=== PATIENT | female | born 1945 | race Caucasian/White ===

== ENCOUNTER 2019-02-16 23:08 | Observation (INO) | payer MEDICARE ==
[~2019-02-16] VITALS: Ht 167.6 cm; Wt 63.5 kg
[2019-02-16 23:08] VITALS: BP 195/84
--- NOTE | 2019-02-16 23:08 | NUR ---
ARRIVAL PATIENT PRESENTS VIA AMBULANCE SP FALL OFF PORCH AT 2245. PATIENT STATES THAT SHE WAS GOING OUTSIDE TO SMOKE, MISSED A STEP, AND FELL ONTO GROUND. DENIES HEAD INJURY OR LOC. DEFORMITY NOTED TO LEFT HUMERUS; STABILIZED BY EMS. PULSES, NEURO INTACT. MD ESTEE NOTIFIED OF PATIENT'S ARRIVAL.
[2019-02-16 23:15] VITALS: BP 187/85
--- NOTE | 2019-02-16 23:25 | ER.PDOC ---
General Chief Complaint: Requesting Medical Care Stated Complaint: ARM PAIN Time seen by MD: 23:23 Source: patient Exam Limitations: no limitations History of Present Illness Initial Comments Left arm pain S/P fall. She missed her steps coming down the stair case. She refused hitting her head and no loss of consciousness. Occurred: just prior to arrival Where: home Severity: severe Context: Tripped Loss of Consciousness: No Loss of Consciousness Associated Symptoms: denies symptoms Allergies: Coded Allergies: Penicillins (Verified Allergy, Unknown, Rash, 02/16/19) levofloxacin (Verified Allergy, Unknown, Rash, 02/16/19) MEDS Unable to Obtain Active Prescriptions or Reported Meds Review of Systems Constitutional: no symptoms reported Respiratory: no symptoms reported Cardiovascular: no symptoms reported Gastrointestinal: no symptoms reported Musculoskeletal: see HPI All Other Systems: Reviewed and Negative Physical Exam General Appearance: No Apparent Distress, WD/WN Head: No Evidence of Injury Ears, Nose, Mouth, Throat: Hearing Grossly Normal, No Evidence of ENT Injury, No Dental Injury Neck: Non-Tender, Normal Alignment, Nexus criteria neg, Normal Inspection Cardiovascular/Respiratory: Regular Rate, Rhythm, No M/R/G, Normal Peripheral Pulses, No JVD, Normal Breath Sounds, No Respiratory Distress Gastrointestinal: Normal Bowel Sounds, No Organomegaly, No Pulsatile Mass, Non Tender, Soft Back: Normal Inspection, No CVA Tenderness, No Vertebral Tenderness Extremities: Pain With Movement, Tenderness (left arm with deformity) 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 (02/16/19 23:50) Xr Chest 1v (02/16/19 23:50) Ekg-Routine (02/16/19 23:50) Vital Signs Date Time Temp Pulse Resp B/P (MAP) Pulse Ox O2 Delivery O2 Flow Rate FiO2 02/16/19 23:45 76 16 160/85 (110) 98 Room Air 02/16/19 23:30 77 16 167/83 (111) 98 Room Air 02/16/19 23:15 80 16 187/85 (119) 98 Room Air 02/16/19 23:08 98.1 78 16 195/84 (121) 98 Room Air 02/16/19 23:08 98.1 78 16 02/16/19 23:08 16 02/16/19 23:08 98.1 78 16 98 Room Air EKG/XRAY/CT/US XRAY Comments: Acute mid diaphyseal fracture of the left humerus as above Departure Time of Disposition: 23:59 Disposition: 09 ADMITTED INPATIENT Impression: Primary Impression: Fracture, humerus closed, shaft Condition: Stable Scripts Unable to Obtain Active Prescriptions or Reported Meds Comments Admitted to Dr. Escoto and spoke to Dr. Miranda who will consult. Duration or Time Spent with Pa: 45 mins Problem Qualifiers Primary Impression: Fracture, humerus closed, shaft Encounter type: initial encounter Fracture morphology: unspecified fracture morphology Laterality: left Qualified Codes: S42.302A - Unspecified fracture of shaft of humerus, left arm, initial encounter for closed fracture NIK FONTANEZ MD Feb 16, 2019 23:25
[2019-02-16 23:30] VITALS: BP 167/83
--- NOTE | 2019-02-16 23:41 | DIREP ---
PROCEDURE:XRAY HUMERUS MIN 2 VWS-LT COMPARISON:None. INDICATIONS:Pain/injury S/P fall FINDINGS: BONES:There is an acute, oblique fracture involving the mid left humeral diaphysis. There is a mild lateral apex angulation deformity JOINTS:Normal. SOFT TISSUES:Normal. OTHER:No additional findings. CONCLUSION:Acute mid diaphyseal fracture of the left humerus as above Dictated by: Alexandra Evans M.D. on 02/16/2019 at 11:39 PM
[2019-02-16 23:45] VITALS: BP 160/85
--- NOTE | 2019-02-16 23:45 | NUR ---
CONSULT DR FONTANEZ ON PHONE WITH DR NUNO REGARDING PATIENT.
[2019-02-17] VITALS (8 sets, daily range): BP systolic 127–169; BP diastolic 54–81
--- NOTE | 2019-02-17 00:01 | NUR ---
CONSULT DR FONTANEZ ON PHONE WITH DR LEVINE REGARDING PATIENT.
[2019-02-17] MEDS ORDERED: LACTATED RINGERS 1,000 ML IV STA (00:03)
[2019-02-17 00:13] LABS: BASOPHIL % 0.4 % (0.0-0.2); EOSINOPHIL # 0.2 10^3/uL (0.0-0.2); EOSINOPHIL % 1.8 % (0.0-5.0); HEMOGLOBIN 12.5 g/dL (12.0-15.0); LYMPHOCYTES # 1.5 10^3/uL (1.0-4.8); LYMPHOCYTES % 18.5 % (24.0-44.0); MEAN CELL HGB CONCENTRATION 33.1 g/dL (33-37); MEAN CORP VOLUME 90.9 fL (78-100); MEAN PLATELET VOLUME 8.8 fL (7.8-11.0); MONOCYTES # 0.5 10^3/uL (0.3-0.8); MONOCYTES % 5.9 % (5.0-12.0); NEUTROPHIL # 6.1 10^3/uL (1.8-7.7); NEUTROPHILS % 73.2 % (41.0-85.0); WHITE BLOOD CELL 8.3 10^3/uL (4.5-11.0)
[2019-02-17] MEDS ORDERED: LACTATED RINGERS 1,000 ML ONE (00:17)
[2019-02-17] MEDS ORDERED: ZOFRAN 4 MG/2 ML VIAL ONE (00:23)
[2019-02-17] MEDS ORDERED: DILAUDID ONE (00:24)
[2019-02-17] MEDS ORDERED: ZOFRAN 4 MG/2 ML VIAL IV PRN (00:30)
[2019-02-17] MEDS: DILAUDID IV PRN ×2 (00:30→04:29)
--- NOTE | 2019-02-17 00:36 | DIREP ---
PROCEDURE:CHEST 1 VIEW COMPARISON:None. INDICATIONS:Medical clearance FINDINGS: LUNGS/PLEURA:No significant pulmonary parenchymal abnormalities. No effusions. Senescent interstitial prominence. VASCULATURE:Normal. Unremarkable pulmonary vasculature. CARDIAC:Normal. No cardiac silhouette abnormality or cardiomegaly. MEDIASTINUM:Normal. No visible mass or adenopathy. BONES:Normal. No fracture or visible bony lesion. OTHER:Negative. CONCLUSION:No active cardiopulmonary disease process Dictated by: Alexandra Evans M.D. on 02/17/2019 at 00:34 AM
[2019-02-17 00:41] LABS: CALCIUM 10.1 mg/dL (8.4-10.5); CARBON DIOXIDE 28.7 mmol/L (20.0-32)
--- NOTE | 2019-02-17 00:50 | NUR ---
SPLINT ORTHO GLASS POSTERIOR SPLINT PLACED BY MD ESTEE.
--- NOTE | 2019-02-17 01:01 | NUR ---
REPORT REPORT CALLED TO LAURA GUDINO ON MED/SURG. ALL QUESTIONS ANSWERED. PATIENT WILL BE TRANSFERRED TO MED/SURG 337 SHORTLY.
--- NOTE | 2019-02-17 01:50 | NUR ---
ARRIVAL PATIENT ARRIVED ON UNIT. ASSUMED CARE AT THIS TIME
--- NOTE | 2019-02-17 02:14 | PCM.EKG ---
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
--- NOTE | 2019-02-17 03:11 | NUR ---
MEDICATION REPORTED TO DR LEVINE PATIENT REPORTED PAIN AT 6. NO ORDERS RECEIVED AT THIS TIME.
--- NOTE | 2019-02-17 03:30 | NUR ---
UPDATE PATIENT CURRENTLY SLEEPING AT THIS TIME. NO SIGNS OF DISTRESS
--- NOTE | 2019-02-17 08:15 | PCM.HP ---
History of Present Illness Reason for Visit: Left Arm pain History of Present Illness Patient is a 73 F PMH of MD Ash (legally blind), HTN, Ulnar Neuropathy LUE s/p corrective surgery, Dementia, CAD (hx of LHC 8 months ago without stenting, negative stress test in the last year), AAA who presents s/p mechanical fall with left arm pain. Patient found to have mid shaft fx of left humerus. Patient admitted to Ortho and medicine consulted for medical management of comorbidities. Patient has LHC in the last month patient needed stenting x 2; however, arteries too small. Family reported that unknown Coronary branch is 100% occluded. She has no chest pain, shortness of breath. Her EKG is negative for acute ischemic changes and patient denies hx of [place] or heart failure. Patient does have hx of Ulnar Neuropathy of the left arm and she underwent corrective surgery for symptoms. Patient takes ASA/Brilinta at home and last dose was yesterday. She also has hx of AAA and unknown renal aneurysm that is monitored by her Box Sorter in [place]. Patient pain is controlled. She is NPO currently for possible surgery. Patient is in no distress during my evaluation. Granddaughter present with her @ bedside during my evaluation. Labs, imaging reviewed. I discussed plan of care with patient and they verbalized understanding/agreement. 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: Dementia, Periperal Neuropathy (Ulnar Neuropathy) Rheumatologic: Fibromyalgia Past Surgical History: Appendectomy, Cholecystectomy, Other (Eyes bilaterally, Hysterectomy, LHC without stenting) Past Social History Smoke: 1 pack per day Alcohol: none Drugs: None Lives: with Family Travel Hx EBOLA RISK:Travel to/contact w: No Is pt experiencing any Ebola s: No Review of Systems Constitutional: No: Fever, Chills Eyes: No: Conjunctivae inflammation, Eyelid inflammation ENT: No: Nose discharge, Nose congestion Respiratory: No: Cough, Shortness of breath, SOB with excertion, Wheezing Cardiovascular: No: Chest Pain, Palpitations Gastrointestinal: No: Nausea, Vomiting, Abdominal Pain Genitourinary: No Incontinence, No Retention Musculoskeletal: arm pain; No: neck pain, back pain Skin: No: Rash, Lesions, Jaundice, Bruising Neurological: No: Weakness, Numbness, Incoordination, Change in speech, Confusion, Seizures Allergies: Coded Allergies: Penicillins (Verified Allergy, Unknown, Rash, 02/16/19) levofloxacin (Verified Allergy, Unknown, Rash, 02/16/19) Unable to Obtain Active Prescriptions or Reported Meds VTE VTE Risk Total Score: 2 VTE Risk Score VTE Risk: Score 0-1 = Low Risk (Aggressive mobilization; early ambulation; no VTE prophylaxis required) Score 2: Moderate Risk (Intermittent/Pneumatic Compression Device OR Lovenox/Heparin/Coumadin) Score 3-4: High Risk (Intermittent/Pneumatic Compression Device AND Lovenox/Heparin/Coumadin) Score > or =5: Highest Risk (Intermittent/Pneumatic Compression Device AND Lovenox/Heparin/Coumadin) VTE VTE Present on Admission: No Currently receiving anticoagul: No VTE Risk Total Score: 2 Exam Vital Signs Vital Signs Date Time Temp Pulse Resp B/P (MAP) Pulse Ox O2 Delivery O2 Flow Rate FiO2 02/17/19 07:25 Room Air 02/17/19 07:25 98.4 80 18 127/57 (80) 91 General Appearance: Alert, Oriented X3, Cooperative, No acute distress HEENT: Atraumatic, PERRLA, EOMI, Mucous membr. moist/pink Respiratory: Clear to auscultation, Normal air movement Cardiovascular: Regular rate, Normal S1, Normal S2, No murmurs Abdominal: Normal bowel sounds, Soft, No tenderness Extremities: Other (LUE in splint for immobilization) Skin: No rash, No breakdown, No lesions Neuro: Normal speech, Strength at 5/5 X4 ext, Normal tone, Sensation intact, Cranial nerves 3-12 NL Psych/Mental Status: Mental status NL, Mood NL Assessment/Plan Assessment/Plan Assessment/Plan Patient is a 73 F PMH of MD [place] (legally blind), HTN, Ulnar Neuropathy LUE s/p corrective surgery, Dementia, CAD (hx of LHC 8 months ago without stenting, negative stress test in the last year), AAA who presents s/p m echanical fall with left arm pain. Patient History: FH: HTN (hypertension) Hypertension G8 BROTHER Plan 1. Left Humerus fx: Ortho managing. Cont pain control. Patient is NPO for possible procedure. Patient is moderate Cardiovascular risk for procedure. Last ASA dosing was yesterday AM. 2. CAD: hx of LHC without stenting. Patient takes ASA/Statin outpatient. LHC without stenting and negative cardiac stress test within last year. No hx of heart failure. 3. Hx of Tobacco Abuse: no reported hx of COPD per patient. 4. HTN: will reconcile home medications when patient brings list. 5. Dementia: mild cognitive decline present. No acute delirium. Patient has capacity to make medical decisions. 6. PPx: PPI, SCDs currently for VTE ppx. ROMERO LEVINE MD Feb 17, 2019 08:15
[2019-02-17] MEDS: MORPHINE SULFATE IV PRN ×2 (08:38→13:52)
[2019-02-17] MEDS ORDERED: PROTONIX IV IV SCH (09:00)
--- NOTE | 2019-02-17 12:31 | PRM.PN ---
Subjective Subjective Date: Feb 17, 2019 Time: 12:29 Subjective Pt has midshaft fx left humerus in good alignment Placed in coaptation splint today Able to extend thumb and wrist Family and pt want to go home Appt in my office in 1 week if she stays in town Patient History: FH: HTN (hypertension) Hypertension G8 BROTHER VTE VTE Risk Total Score: 2 VTE Risk Score VTE Risk: Score 0-1 = Low Risk (Aggressive mobilization; early ambulation; no VTE prophylaxis required) Score 2: Moderate Risk (Intermittent/Pneumatic Compression Device OR Lovenox/Heparin/Coumadin) Score 3-4: High Risk (Intermittent/Pneumatic Compression Device AND Lovenox/Heparin/Coumadin) Score > or =5: Highest Risk (Intermittent/Pneumatic Compression Device AND Lovenox/Heparin/Coumadin) Review of Systems Constitutional: No: Fever, Chills Eyes: No: Conjunctivae inflammation, Eyelid inflammation ENT: No: Nose discharge, Nose congestion Respiratory: No: Cough, Shortness of breath, SOB with excertion, Wheezing Cardiovascular: No: Chest Pain, Palpitations Gastrointestinal: No: Nausea, Vomiting, Abdominal Pain Genitourinary: No Incontinence, No Retention Musculoskeletal: arm pain; No: neck pain, back pain Skin: No: Rash, Lesions, Jaundice, Bruising Neurological: No: Weakness, Numbness, Incoordination, Change in speech, Confusion, Seizures Allergies: Coded Allergies: Penicillins (Verified Allergy, Unknown, Rash, 02/16/19) levofloxacin (Verified Allergy, Unknown, Rash, 02/16/19) Unable to Obtain Active Prescriptions or Reported Meds Objective Vitals and I/O Vital Sign - Last 24 Hours 02/16/19 02/16/19 02/16/19 02/16/19 23:08 23:08 23:08 23:08 Temp 98.1 98.1 98.1 Pulse 78 78 78 Resp 16 16 16 16 B/P (MAP) 195/84 (121) Pulse Ox 98 98 O2 Delivery Room Air Room Air 02/16/19 02/16/19 02/16/19 02/16/19 23:15 23:15 23:30 23:30 Pulse 80 77 Resp 16 16 16 16 B/P (MAP) 187/85 (119) 167/83 (111) Pulse Ox 98 98 O2 Delivery Room Air Room Air 02/16/19 02/16/19 02/17/19 02/17/19 23:45 23:45 00:00 00:00 Pulse 76 74 Resp 16 16 16 16 B/P (MAP) 160/85 (110) 165/79 (107) Pulse Ox 98 97 O2 Delivery Room Air Room Air 02/17/19 02/17/19 02/17/19 02/17/19 00:30 00:30 00:50 00:50 Pulse 72 76 Resp 16 16 16 16 B/P (MAP) 167/74 (105) 169/62 (97) Pulse Ox 97 97 O2 Delivery Room Air Room Air 02/17/19 02/17/19 02/17/19 02/17/19 02:47 02:48 05:43 07:25 Temp 98.5 98.6 98.4 Pulse 83 78 80 Resp 18 18 18 B/P (MAP) 150/69 (96) 152/70 (97) 127/57 (80) Pulse Ox 95 94 91 O2 Delivery Room Air Room Air Room Air Room Air 02/17/19 07:25 O2 Delivery Room Air General: Alert, Oriented X3, Cooperative, No acute distress HEENT: Atraumatic, PERRLA, EOMI, Mucous membr. moist/pink Lungs: Clear to auscultation, Normal air movement Heart: Regular rate, Normal S1, Normal S2, No murmurs Abdomen: Normal bowel sounds, Soft, No tenderness Extremities: Other (LUE in splint for immobilization) Neuro: Normal speech, Strength at 5/5 X4 ext, Normal tone, Sensation intact, Cranial nerves 3-12 NL Psych/Mental Status: Mental status NL, Mood NL All Results(Lab/Rad) Laboratory Tests Test 02/17/19 00:08 White Blood Count 8.3 10^3/uL Red Blood Count 4.16 10^6/uL Hemoglobin 12.5 g/dL Hematocrit 37.8 % Mean Corpuscular Volume 90.9 fL Mean Corpuscular Hemoglobin 30.0 pg Mean Corpuscular Hemoglobin Concent 33.1 g/dL Red Cell Distribution Width 14.0 % Platelet Count 177 10^3/uL Mean Platelet Volume 8.8 fL Neutrophils (%) (Auto) 73.2 % Lymphocytes (%) (Auto) 18.5 % Monocytes (%) (Auto) 5.9 % Neutrophils # (Auto) 6.1 10^3/uL Lymphocytes # (Auto) 1.5 10^3/uL Monocytes # (Auto) 0.5 10^3/uL Absolute Immature Granulocyte (auto 0.02 10^3 u/L Immature Granulocytes % 0.20 % Eosinophils % 1.8 % Basophils % 0.4 % Basophils # 0.0 10^3/uL Eosinophil Count 0.2 10^3/uL Prothrombin Time 10.0 SEC Prothrombin Time INR (Non-Therap) 1.0 Activated Partial Thromboplast Time 23.2 SEC Sodium Level 142 mmol/L Potassium Level 3.5 mmol/L Chloride Level 105.0 mmol/L Carbon Dioxide Level 28.7 mmol/L Anion Gap 11.8 Blood Urea Nitrogen 18 mg/dL Creatinine 0.95 mg/dL Estimated GFR () 70.0 BUN/Creatinine Ratio 18.0 Glucose Level 140 mg/dL Calcium Level 10.1 mg/dL Total Bilirubin 0.4 mg/dL Aspartate Amino Transf (AST/SGOT) 17 U/L Alanine Aminotransferase (ALT/SGPT) 18 U/L Alkaline Phosphatase 126 U/L Total Protein 7.5 g/dL Albumin 3.9 g/dL Globulin 3.6 Current Medications Medications (Trade) Dose Ordered Sig/Ad Route PRN Reason Start Time Stop Time Status Last Admin Dose Admin Hydromorphone HCl (Dilaudid) 1 mg Q4H PRN IV PAIN 7 - 10 02/17/19 00:30 03/19/19 00:29 02/17/19 04:29 Ondansetron HCl (Zofran 4 Mg/2 ml Vial) 4 mg Q4H PRN IV NAUSEA / VOMITING 02/17/19 00:30 03/19/19 00:29 02/17/19 00:30 Ondansetron HCl (Zofran 4 Mg/2 ml Vial) 4 mg STK-MED ONCE .ROUTE 02/17/19 00:23 02/17/19 00:25 DC Hydromorphone HCl (Dilaudid) 2 mg STK-MED ONCE .ROUTE 02/17/19 00:24 02/17/19 00:26 DC Pantoprazole Sodium (Protonix Iv) 40 mg DAILY IV 02/17/19 09:00 03/19/19 08:59 02/17/19 08:45 Morphine Sulfate (Morphine Sulfate) 2 mg Q4H PRN IV PAIN 4 - 6 02/17/19 08:30 03/19/19 08:29 02/17/19 08:38 Course Sepsis Screening Results: Posi: NEGATIVE Sepsis Qualifier/Stage: NO DEFINITE RISK Duration or Total Time Spent w: 45 mins Vitals & review Data Vital Sign - Last 24 Hours 02/16/19 02/16/19 02/16/19 02/16/19 23:08 23:08 23:08 23:08 Temp 98.1 98.1 98.1 Pulse 78 78 78 Resp 16 16 16 16 B/P (MAP) 195/84 (121) Pulse Ox 98 98 O2 Delivery Room Air Room Air 02/16/19 02/16/19 02/16/19 02/16/19 23:15 23:15 23:30 23:30 Pulse 80 77 Resp 16 16 16 16 B/P (MAP) 187/85 (119) 167/83 (111) Pulse Ox 98 98 O2 Delivery Room Air Room Air 02/16/19 02/16/19 02/17/19 02/17/19 23:45 23:45 00:00 00:00 Pulse 76 74 Resp 16 16 16 16 B/P (MAP) 160/85 (110) 165/79 (107) Pulse Ox 98 97 O2 Delivery Room Air Room Air 02/17/19 02/17/19 02/17/19 02/17/19 00:30 00:30 00:50 00:50 Pulse 72 76 Resp 16 16 16 16 B/P (MAP) 167/74 (105) 169/62 (97) Pulse Ox 97 97 O2 Delivery Room Air Room Air 02/17/19 02/17/19 02/17/19 02/17/19 02:47 02:48 05:43 07:25 Temp 98.5 98.6 98.4 Pulse 83 78 80 Resp 18 18 18 B/P (MAP) 150/69 (96) 152/70 (97) 127/57 (80) Pulse Ox 95 94 91 O2 Delivery Room Air Room Air Room Air Room Air 02/17/19 07:25 O2 Delivery Room Air Laboratory Tests Test 02/17/19 00:08 White Blood Count 8.3 10^3/uL Red Blood Count 4.16 10^6/uL Hemoglobin 12.5 g/dL Hematocrit 37.8 % Mean Corpuscular Volume 90.9 fL Mean Corpuscular Hemoglobin 30.0 pg Mean Corpuscular Hemoglobin Concent 33.1 g/dL Red Cell Distribution Width 14.0 % Platelet Count 177 10^3/uL Mean Platelet Volume 8.8 fL Neutrophils (%) (Auto) 73.2 % Lymphocytes (%) (Auto) 18.5 % Monocytes (%) (Auto) 5.9 % Neutrophils # (Auto) 6.1 10^3/uL Lymphocytes # (Auto) 1.5 10^3/uL Monocytes # (Auto) 0.5 10^3/uL Absolute Immature Granulocyte (auto 0.02 10^3 u/L Immature Granulocytes % 0.20 % Eosinophils % 1.8 % Basophils % 0.4 % Basophils # 0.0 10^3/uL Eosinophil Count 0.2 10^3/uL Prothrombin Time 10.0 SEC Prothrombin Time INR (Non-Therap) 1.0 Activated Partial Thromboplast Time 23.2 SEC Sodium Level 142 mmol/L Potassium Level 3.5 mmol/L Chloride Level 105.0 mmol/L Carbon Dioxide Level 28.7 mmol/L Anion Gap 11.8 Blood Urea Nitrogen 18 mg/dL Creatinine 0.95 mg/dL Estimated GFR () 70.0 BUN/Creatinine Ratio 18.0 Glucose Level 140 mg/dL Calcium Level 10.1 mg/dL Total Bilirubin 0.4 mg/dL Aspartate Amino Transf (AST/SGOT) 17 U/L Alanine Aminotransferase (ALT/SGPT) 18 U/L Alkaline Phosphatase 126 U/L Total Protein 7.5 g/dL Albumin 3.9 g/dL Globulin 3.6 Current Medications Medications (Trade) Dose Ordered Sig/Ad PRN Reason Start Time Stop Time Status Last Admin Hydromorphone HCl (Dilaudid) 1 mg Q4H PRN PAIN 7 - 10 02/17/19 00:30 03/19/19 00:29 02/17/19 04:29 Morphine Sulfate (Morphine Sulfate) 2 mg Q4H PRN PAIN 4 - 6 02/17/19 08:30 03/19/19 08:29 02/17/19 08:38 Ondansetron HCl (Zofran 4 Mg/2 ml Vial) 4 mg Q4H PRN NAUSEA / VOMITING 02/17/19 00:30 03/19/19 00:29 02/17/19 00:30 Pantoprazole Sodium (Protonix Iv) 40 mg DAILY 02/17/19 09:00 03/19/19 08:59 02/17/19 08:45 LEVEL 1 SEPSIS INFECTION CRITE: None/Not assessed LEVEL 2-SIRS (LIST ALL THAT AP: None/Not assessed O2 Sat by Pulse Oximetry: 91 Assessment/Plan Assessment/Plan Assessment/Plan 1. Left Humerus fx: Ortho managing. Cont pain control. Patient is NPO for possible procedure. Patient is moderate Cardiovascular risk for procedure. Last ASA dosing was yesterday AM. 2. CAD: hx of LHC without stenting. Patient takes ASA/Statin outpatient. LHC without stenting and negative cardiac stress test within last year. No hx of heart failure. 3. Hx of Tobacco Abuse: no reported hx of COPD per patient. 4. HTN: will reconcile home medications when patient brings list. 5. Dementia: mild cognitive decline present. No acute delirium. Patient has capacity to make medical decisions. 6. PPx: PPI, SCDs currently for VTE ppx. Plan 1. Left Humerus fx: Ortho managing. Cont pain control. Patient is NPO for possible procedure. Patient is moderate Cardiovascular risk for procedure. Last ASA dosing was yesterday AM. 2. CAD: hx of LHC without stenting. Patient takes ASA/Statin outpatient. LHC without stenting and negative cardiac stress test within last year. No hx of heart failure. 3. Hx of Tobacco Abuse: no reported hx of COPD per patient. 4. HTN: will reconcile home medications when patient brings list. 5. Dementia: mild cognitive decline present. No acute delirium. Patient has capacity to make medical decisions. 6. PPx: PPI, SCDs currently for VTE ppx. LIOR NUNO MD Feb 17, 2019 12:31
--- NOTE | 2019-02-17 12:39 | HPH ---
ADMIT DATE: 02/17/2019 CHIEF COMPLAINT: Painful left upper arm. HISTORY OF PRESENT ILLNESS: The patient is a 73-year-old female, who fell off a porch last night and injured her left upper extremity. The patient is legally blind. The patient was seen in the Emergency Room and splinted and admitted for pain control. PAST MEDICAL HISTORY: The patient's medical problems Include fibromyalgia. She has macular degeneration and is legally blind. She also has hypertension, ulnar neuropathy, dementia, and coronary artery disease. The patient also has hyperlipidemia. PAST SURGICAL HISTORY: Appendectomy, cholecystectomy, eye surgery, hysterectomy, and left elbow surgery. SOCIAL HISTORY: The patient smokes a pack a day. She lives in [place] with her brother. She does not drink alcohol. FAMILY HISTORY: Unknown. REVIEW OF SYSTEMS: Positive for RSD in the left upper arm from elbow surgery in the . She denies any complaints of shortness of breath, nausea, vomiting, melena, hematochezia, dysuria, hematuria, fever, chills, or weight loss. MEDICATIONS: Listed on the chart. PHYSICAL EXAMINATION: GENERAL: Shows that she is awake and alert. She is oriented x 3. HEENT: Within normal limits for her age. CHEST: Clear to auscultation. HEART: Regular rate and rhythm. No murmur. ABDOMEN: Soft and nontender. EXTREMITIES: The patient's left upper extremity has mild swelling. She has a midshaft deformity of the left humerus. There is tenderness about the left humerus to palpation, but no open wounds or fracture blisters. There is no bruising. The patient has no other areas of tenderness or deformity. NEUROLOGIC: The patient has neurologically good radial pulse. She is able to extend her thumb and her wrist. Otherwise, she is somewhat confused to place and time, but is able to follow commands and relatively answers questions appropriately. IMAGING STUDIES: The x-rays reveal minimally angulated midshaft transverse fracture about the left humeral shaft. ASSESSMENT: 1. Closed minimally angulated left humeral shaft fracture. 2. Other diagnoses include coronary artery disease, macular degeneration, and dementia. PLAN: The patient was placed in a well-padded coaptation splint today and back in her arm sling. The patient wants to be discharged today. We will give her a prescription for Tylenol #4 for the pain. If she decided to stay in [place], will follow up with me in a week in my office. I have instructed to leave the coaptation splint in place. Favio Escoto MD DR: RODRIGUE/renny JOB# [id number]
--- NOTE | 2019-02-17 13:02 | DSH ---
DATE OF DISCHARGE: 02/17/2019 ADMITTING DIAGNOSIS: Closed midshaft fracture of the left humerus. OTHER DIAGNOSES: Include dementia, fibromyalgia, macular degeneration, and coronary artery disease. DISCHARGE DIAGNOSIS: Closed midshaft fracture of the left humerus. OPERATIVE PROCEDURE: None. CONSULTATIONS: Dr. Miranda. SUMMARY OF ADMISSION: The patient is a 73-year-old female visiting in [place] for the holidays and fell off a porch last night and suffered a midshaft fracture of the left humeral shaft. She had some mild angulation. The patient was admitted the last night for pain control. The patient's exam today shows mild swelling about the left upper arm. The radial pulse is 2+. She has good extension of her wrist and her thumb. The x-rays show a midshaft fracture of the left humeral shaft in acceptable alignment. The patient was placed in a well-fitted and padded coaptation splint today. She was placed back in the arm sling. She will be given a prescription for Tylenol #4 for the pain. She also has some Lyrica at home and can use ibuprofen up to 800 mg 3 times a day. The patient lives in [place], [place]. If she chooses to stay in [place] with her family for several weeks, they will be seen back in my office next week. Favio Escoto MD DR: RODRIGUE/renny JOB# [id number]
[2019-02-17] MEDS ORDERED: ACET-687 PO (13:22)
--- NOTE | 2019-02-17 14:40 | NUR ---
DISCHARGED Pt DISCHARGED TO HOME FROM THE UNIT, EDUCATED Pt AND GRAND KIDS ON DISCHARGE PACKET, PRESCRIPTIONS, AND F/W APPOINTMENT WITH DR NUNO AND PCP, THEY VERBALIZED UNDERSTATING. IV DC/ ASSISTED PT IN WC TO MAIN EXIT BY CHARGE NURSE ALEK SANCHEZ.
== END 2019-02-17 14:45 | disposition home or self-care (01) ==
LOC: EDBD 23:08 → ER 23:08 → INTOOBSV 02-17 00:03 → MS 02-17 00:03 → UNDOADMIN 02-17 00:03 → UNDODISIN 02-17 14:45
PROVIDERS: ADMIT Family Medicine; ATTEND Orthopaedic Surgery
DX: S42.302A Unspecified fracture of shaft of humerus, left arm, initial encounter for closed fracture (principal); M79.7 Fibromyalgia; I10 Essential (primary) hypertension; G56.22 Lesion of ulnar nerve, left upper limb; F03.90 Unspecified dementia, unspecified severity, without behavioral disturbance, psychotic disturbance, mood disturbance, and anxiety; I25.10 Atherosclerotic heart disease of native coronary artery without angina pectoris; Z95.5 Presence of coronary angioplasty implant and graft; E78.5 Hyperlipidemia, unspecified; F17.210 Nicotine dependence, cigarettes, uncomplicated; Z90.49 Acquired absence of other specified parts of digestive tract; Z90.710 Acquired absence of both cervix and uterus; Z79.82 Long term (current) use of aspirin; Z79.899 Other long term (current) drug therapy; Z88.1 Allergy status to other antibiotic agents; Z88.0 Allergy status to penicillin; W19.XXXA Unspecified fall, initial encounter; Y92.89 Other specified places as the place of occurrence of the external cause; Y93.89 Activity, other specified
CPT/HCPCS: 36415; 71045; 73060; 80053; 85025; 85610; 85730; 93005; 96374; 96375; 96376; 99284; 99285; C9113; G0378 ×15; J1170 ×2; J2270 ×2; J2405; J7120 ×2

== ENCOUNTER 2019-02-24 18:41 | Emergency (ER) | payer MEDICARE ==
[~2019-02-24] VITALS: Ht 167.6 cm; Wt 56.2 kg
[~2019-02-24 18:41] MED LIST: ACET-687 PO
[2019-02-24 19:29] VITALS: BP 150/55
[2019-02-24] MEDS ORDERED: ROBAXIN PO STA (19:29)
[2019-02-24] MEDS ORDERED: TYLENOL PO STA (19:29)
[2019-02-24] MEDS ORDERED: NS 1000ML 1,000 ML IV SCH (19:30)
--- NOTE | 2019-02-24 19:34 | ER.PDOC ---
General Chief Complaint: Seizure Stated Complaint: ZIURE Time seen by MD: 19:15 Source: patient, family Exam Limitations: no limitations History of Present Illness Initial Comments Patient comes to the ED, accompanied by granddaughter who is RN and helps with the history. She is up visiting from [place], [place] and was feeling dizzy and leaned against the wall and then collapsed and had a seizure. Did not fall as the assistant family teacher caught her. Post-ictal phase approximately 1-2 minutes. No previous history of seizure in the past. Last CT head approximately six months ago. Not currently on anticonvulsants. Pt states that she had been feeling at her baseline, no fever, cough, dyspnea, nausea, vomiting, visual changes, numbness, tingling, weakness, or any neuro complaints. No h/o blunt head trauma. Pt had previously sustained LUE fracture, seen and evaluated by her primary. Primary = Dr Adolfo Puentes [address] [place] [address] Allergies: Coded Allergies: Penicillins (Verified Allergy, Unknown, Rash, 02/16/19) levofloxacin (Verified Allergy, Unknown, Rash, 02/16/19) Home Meds Reported Medications Acetaminophen With Codeine (TYLENOL WITH CODEINE #4 TABLET) 1 Each Tablet, 1-2 TAB PO Q6HR PRN for pain MDD 3 Tablet(s) for 30 Days, #90 TAB 0 Refills 02/17/19 Past Medical History Medical History: coronary artery disease, fibromyalgia Surgical History: appendectomy, cholecystectomy, hysterectomy Social History Drug Use: none All Other Systems: Reviewed and Negative Physical Exam General Appearance: alert, no distress Comments General: cooperative HEENT: normocephalic, atraumatic, EOMI, sclerae anicteric without injection, oropharynx : pink and moist Neck: supple, no rigidity noted or appreciated CV: regular rate and rhythm, S1, S2, no rubs, clicks, or murmurs appreciated Lungs: clear to auscultation bilaterally, no increased work of breathing, no retractions noted, no rles, no wheezes, or rhonchi Abdomen: soft, non-tender, non-distended, normoactive bowel sounds, no rebound, no guarding Back: no focal findings noted Extremities: no clubbing, cyanosis, or edema, LUE in splint secondary to previous known fracture Skin: warm, dry, intact, cap refill < 2 seconds Neuro: no focal deficits noted, CN 2-12 gross intact, moves all extremities x/ LUE well Psych: normal affect Results/Orders Results/Orders Orders - KARINA PURI MD Cbc With Auto Diff (02/24/19 19:29) Comprehensive Metabolic Panel (02/24/19 19:29) Urinalysis (02/24/19 19:29) Cardiac Monitoring (02/24/19 19:29) Drug Screen Medical(Ml) (02/24/19 19:29) Troponin I (02/24/19 19:29) Ekg-Routine (02/24/19 19:29) Acetaminophen (Tylenol) (02/24/19 19:29) Methocarbamol (Robaxin) (02/24/19 19:29) 0.9 % Sodium Chloride (Ns 1000ml) (02/24/19 19:30) Ct Head Wo Contrast (02/24/19 19:36) Levetiracetam (Keppra) (02/24/19 19:36) Levetiracetam (Keppra) (02/24/19 20:09) Methocarbamol (Robaxin) (02/24/19 20:09) 0.9 % Sodium Chloride (Ns 1000ml) (02/24/19 20:10) Acetaminophen (Tylenol) (02/24/19 20:11) Methocarbamol (Robaxin) (02/24/19 20:16) Potassium Chloride (Klor-Con 10) (02/24/19 21:09) Potassium Chloride (Klor-Con 10) (02/24/19 21:16) Opiate Confirmation Ur (02/24/19 UNK) Vital Signs Date Time Temp Pulse Resp B/P (MAP) Pulse Ox O2 Delivery O2 Flow Rate FiO2 02/24/19 19:29 97.9 62 16 150/55 (86) 98 02/24/19 19:29 97.9 62 16 98 Administered Medications Medications (Trade) Dose Ordered Sig/Ad Route PRN Reason Start Time Stop Time Status Last Admin Dose Admin Acetaminophen (Tylenol) 1,000 mg STAT STAT PO 02/24/19 19:29 02/24/19 19:32 DC 02/24/19 20:21 1,000 MG Levetiracetam (Keppra) 500 mg STAT STAT PO 02/24/19 19:36 02/24/19 19:37 DC 02/24/19 20:22 500 MG Methocarbamol (Robaxin) 1,000 mg STAT STAT PO 02/24/19 19:29 02/24/19 19:32 DC 02/24/19 20:20 1,000 MG Potassium Chloride (Klor-Con 10) 10 meq STAT STAT PO 02/24/19 21:09 02/24/19 21:11 DC 02/24/19 21:20 10 MEQ Sodium Chloride 1,000 ml @ 100 mls/hr Q10H IV 02/24/19 19:30 03/26/19 19:29 02/24/19 20:32 100 MLS/HR Laboratory Tests Test 02/24/19 00:00 02/24/19 19:41 Urine Collection Type VOID Urine Color YELLOW (YELLOW) Urine Appearance CLEAR (CLEAR) Urine Bilirubin NEGATIVE MG/DL (NEGATIVE) Urine Ketones NEGATIVE (NEGATIVE) Urine Specific [place] 1.015 (1.005-1.035) Urine pH 6 (5.0-6.0) Urine Protein NEGATIVE (NEGATIVE) Urine Urobilinogen NORMAL (NEGATIVE) Urine Nitrate NEGATIVE (NEGATIVE) Urine Leukocyte Esterase NEGATIVE (NEGATIVE) Urine Blood NEGATIVE (NEGATIVE) Urine Glucose NORMAL (NEGATIVE) Urine Opiates, Qualitative POSITIVE ng/mL (CUT-OFF:300) Urine Methadone, Qualitative NEGATIVE ng/mL (CUT-OFF:300) Urine Amphetamine Qualitative NEGATIVE ng/mL (CUTOFF:1000) Urine Barbiturates, Qualitative NEGATIVE ng/mL (CUT-OFF:200) Urine Phencyclidine Screen NEGATIVE ng/mL (CUT-OFF:25) Urine MDMA (Ecstasy), Qualitative NEGATIVE ng/mL (CUT-OFF:300) Urine Benzodiazepines Screen NEGATIVE ng/mL (CUT-OFF:200) Urine Cocaine Qualitative NEGATIVE ng/mL (CUT-OFF:300) Ur Tetrahydrocannabinol (THC) Scrn NEGATIVE ng/mL (CUT-OFF:50) White Blood Count 4.1 10^3/uL (4.5-11.0) L Red Blood Count 3.19 10^6/uL (4.00-5.20) L Hemoglobin 9.5 g/dL (12.0-15.0) #L Hematocrit 28.7 % (36.0-46.0) L Mean Corpuscular Volume 90.0 fL (78-100) Mean Corpuscular Hemoglobin 29.8 pg (26-34) Mean Corpuscular Hemoglobin Concent 33.1 g/dL (33-37) Red Cell Distribution Width 13.8 % (11.5-14.5) Platelet Count 190 10^3/uL (150-400) Mean Platelet Volume 8.7 fL (7.8-11.0) Neutrophils (%) (Auto) 69.1 % (41.0-85.0) Lymphocytes (%) (Auto) 21.8 % (24.0-44.0) L Monocytes (%) (Auto) 7.6 % (5.0-12.0) Neutrophils # (Auto) 2.8 10^3/uL (1.8-7.7) Lymphocytes # (Auto) 0.9 10^3/uL (1.0-4.8) L Monocytes # (Auto) 0.3 10^3/uL (0.3-0.8) Absolute Immature Granulocyte (auto 0 10^3 u/L (0-2) Immature Granulocytes % 0.00 % (0.00-0.50) Eosinophils % 1.0 % (0.0-5.0) Basophils % 0.5 % (0.0-0.2) H Basophils # 0.0 10^3/uL (0.0-0.1) Eosinophil Count 0.0 10^3/uL (0.0-0.2) Sodium Level 142 mmol/L (132-145) Potassium Level 3.1 mmol/L (3.6-5.2) L Chloride Level 108.0 mmol/L (96-109) Carbon Dioxide Level 24.9 mmol/L (20.0-32) Anion Gap 12.2 Blood Urea Nitrogen 15 mg/dL (7-18) Creatinine 0.60 mg/dL (0.59-1.40) Estimated GFR () 118.9 (>/=60) BUN/Creatinine Ratio 25.0 Glucose Level 98 mg/dL (70-110) Calcium Level 9.1 mg/dL (8.4-10.5) Total Bilirubin 0.8 mg/dL (0.2-1.0) Aspartate Amino Transferase (AST) 20 U/L (0-35) Alanine Aminotransferase (ALT) 18 U/L (12-78) Alkaline Phosphatase 120 U/L (50-136) Troponin I < 0.02 ng/mL (0.00-0.05) Total Protein 6.8 g/dL (6.4-8.2) Albumin 3.1 g/dL (3.4-5.0) L Globulin 3.7 Progress Progress Patient findings consistent with new onset seizure, altered mental status, infection, or other. Baseline labs, EKG, UA, UDS, obtained. Sent for noncontrast head CT noted to negative for acute abnormalities. Given single dose of levetiracetam to prevent further seizures. EKG (my read): time stamp 193 rate 58 normal sinus, normal CO interval, normal QRS interval, normal axis, ? RSR' in V1, no significant T wave changes appreciated, mild ST seg depression noted inferolaterally No old EKGs available for comparison. Patient remained in the department for several hours and no further seizures. Mild hypokalemia repleted orally. Re-eval at 2155 and doing much better, discharged home w/ granddaughter on a regimen of levetiracetam 500 mg po BID and will also give methocarbamol as needed. She plans on returning to the [facility] in the next 1-[address] Sumit Dunn at that time upon her return. Course Sepsis Screening Results: Posi: NEGATIVE Sepsis Qualifier/Stage: NO DEFINITE RISK Duration or Total Time Spent w: 45 mins Vitals & review Data Vital Sign - Last 24 Hours 02/24/19 02/24/19 19:29 19:29 Temp 97.9 97.9 Pulse 62 62 Resp 16 16 B/P (MAP) 150/55 (86) Pulse Ox 98 98 Laboratory Tests Test 02/24/19 00:00 02/24/19 19:41 Urine Collection Type VOID Urine Color YELLOW Urine Appearance CLEAR Urine Bilirubin NEGATIVE MG/DL Urine Ketones NEGATIVE Urine Specific [place] 1.015 Urine pH 6 Urine Protein NEGATIVE Urine Urobilinogen NORMAL Urine Nitrate NEGATIVE Urine Leukocyte Esterase NEGATIVE Urine Blood NEGATIVE Urine Glucose NORMAL Urine Opiates, Qualitative POSITIVE ng/mL Urine Methadone, Qualitative NEGATIVE ng/mL Urine Amphetamine Qualitative NEGATIVE ng/mL Urine Barbiturates, Qualitative NEGATIVE ng/mL Urine Phencyclidine Screen NEGATIVE ng/mL Urine MDMA (Ecstasy), Qualitative NEGATIVE ng/mL Urine Benzodiazepines Screen NEGATIVE ng/mL Urine Cocaine Qualitative NEGATIVE ng/mL Ur Tetrahydrocannabinol (THC) Scrn NEGATIVE ng/mL White Blood Count 4.1 10^3/uL Red Blood Count 3.19 10^6/uL Hemoglobin 9.5 g/dL Hematocrit 28.7 % Mean Corpuscular Volume 90.0 fL Mean Corpuscular Hemoglobin 29.8 pg Mean Corpuscular Hemoglobin Concent 33.1 g/dL Red Cell Distribution Width 13.8 % Platelet Count 190 10^3/uL Mean Platelet Volume 8.7 fL Neutrophils (%) (Auto) 69.1 % Lymphocytes (%) (Auto) 21.8 % Monocytes (%) (Auto) 7.6 % Neutrophils # (Auto) 2.8 10^3/uL Lymphocytes # (Auto) 0.9 10^3/uL Monocytes # (Auto) 0.3 10^3/uL Absolute Immature Granulocyte (auto 0 10^3 u/L Immature Granulocytes % 0.00 % Eosinophils % 1.0 % Basophils % 0.5 % Basophils # 0.0 10^3/uL Eosinophil Count 0.0 10^3/uL Sodium Level 142 mmol/L Potassium Level 3.1 mmol/L Chloride Level 108.0 mmol/L Carbon Dioxide Level 24.9 mmol/L Anion Gap 12.2 Blood Urea Nitrogen 15 mg/dL Creatinine 0.60 mg/dL Estimated GFR () 118.9 BUN/Creatinine Ratio 25.0 Glucose Level 98 mg/dL Calcium Level 9.1 mg/dL Total Bilirubin 0.8 mg/dL Aspartate Amino Transf (AST/SGOT) 20 U/L Alanine Aminotransferase (ALT/SGPT) 18 U/L Alkaline Phosphatase 120 U/L Troponin I < 0.02 ng/mL Total Protein 6.8 g/dL Albumin 3.1 g/dL Globulin 3.7 Current Medications Medications (Trade) Dose Ordered Sig/Ad PRN Reason Start Time Stop Time Status Last Admin Sodium Chloride 1,000 ml @ 100 mls/hr Q10H 02/24/19 19:30 03/26/19 19:29 02/24/19 20:32 Vital Sign - Last 24 Hours 02/24/19 02/24/19 19:29 19:29 Temp 97.9 97.9 Pulse 62 62 Resp 16 16 B/P (MAP) 150/55 (86) Pulse Ox 98 98 Laboratory Tests Test 02/24/19 19:41 White Blood Count 4.1 10^3/uL Red Blood Count 3.19 10^6/uL Hemoglobin 9.5 g/dL Hematocrit 28.7 % Mean Corpuscular Volume 90.0 fL Mean Corpuscular Hemoglobin 29.8 pg Mean Corpuscular Hemoglobin Concent 33.1 g/dL Red Cell Distribution Width 13.8 % Platelet Count 190 10^3/uL Mean Platelet Volume 8.7 fL Neutrophils (%) (Auto) 69.1 % Lymphocytes (%) (Auto) 21.8 % Monocytes (%) (Auto) 7.6 % Neutrophils # (Auto) 2.8 10^3/uL Lymphocytes # (Auto) 0.9 10^3/uL Monocytes # (Auto) 0.3 10^3/uL Absolute Immature Granulocyte (auto 0 10^3 u/L Immature Granulocytes % 0.00 % Eosinophils % 1.0 % Basophils % 0.5 % Basophils # 0.0 10^3/uL Eosinophil Count 0.0 10^3/uL Sodium Level 142 mmol/L Potassium Level 3.1 mmol/L Chloride Level 108.0 mmol/L Carbon Dioxide Level 24.9 mmol/L Anion Gap 12.2 Blood Urea Nitrogen 15 mg/dL Creatinine 0.60 mg/dL Estimated GFR () 118.9 BUN/Creatinine Ratio 25.0 Glucose Level 98 mg/dL Calcium Level 9.1 mg/dL Total Bilirubin 0.8 mg/dL Aspartate Amino Transf (AST/SGOT) 20 U/L Alanine Aminotransferase (ALT/SGPT) 18 U/L Alkaline Phosphatase 120 U/L Troponin I < 0.02 ng/mL Total Protein 6.8 g/dL Albumin 3.1 g/dL Globulin 3.7 Current Medications Medications (Trade) Dose Ordered Sig/Ad PRN Reason Start Time Stop Time Status Last Admin Sodium Chloride 1,000 ml @ 100 mls/hr Q10H 02/24/19 19:30 03/26/19 19:29 02/24/19 20:32 LEVEL 1 SEPSIS INFECTION CRITE: None/Not assessed LEVEL 2-SIRS (LIST ALL THAT AP: None/Not assessed O2 Sat by Pulse Oximetry: 98 Departure Time of Disposition: 21:59 Disposition: 01 HOME, SELF-CARE Impression: Primary Impression: Seizure Additional Impression: Hypokalemia Condition: Stable Patient Instructions: Hypokalemia, Seizure, Adult Referrals: Dr Adolfo Dunn Additional Instructions: As we discussed, there were no findings which were worrisome or concerning. Your CT scan (CAT scan) did not show any acute abnormalities at this time. Your labs showed a very mild low potassium that was repleted in the emergency department. To control your seizures, you were started on a anti-seizure medicine called LEVETIRACETAM (trade name Keppra). A good dose to take is levetiracetam 500 mg TWICE A DAY. As we talked about, do not drive, bathe in a tub, or go swimming until your seizures are under control. Thank you again for your visit and for trusting us with your care. Dr Karina Puri (tree - [place]' - knee) Duration or Time Spent with Pa: 30 Return to Work/School Can a patient return to work?: Yes Problem Qualifiers KARINA PURI MD Feb 24, 2019 19:34
[2019-02-24] MEDS ORDERED: KEPPRA PO STA (19:36)
--- NOTE | 2019-02-24 19:42 | PCM.EKG ---
[facility] Test Date: 2019-02-24 Test Time: 19:39:50 Pat Name: LAMIN CORTÉS [facility]: 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
[2019-02-24 19:48] LABS: BASOPHIL % 0.5 % (0.0-0.2); HEMOGLOBIN 9.5 g/dL (12.0-15.0); LYMPHOCYTES # 0.9 10^3/uL (1.0-4.8); LYMPHOCYTES % 21.8 % (24.0-44.0); MEAN CELL HGB 29.8 pg (26-34); MEAN CELL HGB CONCENTRATION 33.1 g/dL (33-37); MEAN PLATELET VOLUME 8.7 fL (7.8-11.0); MONOCYTES # 0.3 10^3/uL (0.3-0.8); MONOCYTES % 7.6 % (5.0-12.0); NEUTROPHIL # 2.8 10^3/uL (1.8-7.7); NEUTROPHILS % 69.1 % (41.0-85.0); RED CELL DISTRIBUTION WIDTH 13.8 % (11.5-14.5); WHITE BLOOD CELL 4.1 10^3/uL (4.5-11.0)
[2019-02-24] MEDS ORDERED: ROBAXIN ONE ×2 (20:09→20:16)
[2019-02-24] MEDS ORDERED: KEPPRA ONE (20:09)
[2019-02-24] MEDS ORDERED: NS 1000ML 1,000 ML ONE (20:10)
[2019-02-24 20:11] LABS: ALANINE AMINOTRANSFERASE(ML) 18 U/L (12-78); ALKALINE PHOSPHATASE 120 U/L (50-136); ASPARTATE AMINO TRANSFERASE 20 U/L (0-35); CALCIUM 9.1 mg/dL (8.4-10.5); CARBON DIOXIDE 24.9 mmol/L (20.0-32); GLUCOSE 98 mg/dL (70-110)
[2019-02-24] MEDS ORDERED: TYLENOL PO ONE (20:11)
--- NOTE | 2019-02-24 20:15 | DIREP ---
PROCEDURE:CT HEAD OR BRAIN W/O CONTRAST COMPARISON:None. INDICATIONS:New onset seizure TECHNIQUE:CT images were created without intravenous contrast. FINDINGS: VENTRICLES:The ventricles are normal in size and configuration. CEREBRUM:Normal cerebral morphology with appropriate estrada white matter differentiation. CEREBELLUM:Negative. BRAINSTEM:Negative. BASAL CISTERNS:Negative. HEMORRHAGE:No MASS LESION:No ACUTE INFARCT:No SKULL:Normal. SINUSES:Normal. OTHER:None CONCLUSION: 1. Normal examination. Dictated by: Félix Mock MD on 02/24/2019 at 08:09 PM
[2019-02-24] MEDS ORDERED: KLOR-CON 10 PO STA (21:09)
[2019-02-24 21:10] LABS: BILIRUBIN,URINE NEGATIVE (NEGATIVE); UROBILINOGEN,URINE NORMAL (NEGATIVE)
[2019-02-24] MEDS ORDERED: KLOR-CON 10 PO ONE (21:16)
[2019-02-24 21:17] LABS: APPEARANCE,URINE CLEAR (CLEAR); UA COLOR YELLOW (YELLOW)
[2019-02-24 22:18] VITALS: BP 158/67
== END 2019-02-24 22:20 | disposition home or self-care (01) ==
LOC: ER 18:41
DX: R56.9 Unspecified convulsions (principal); E87.6 Hypokalemia; R55 Syncope and collapse; R42 Dizziness and giddiness; I25.10 Atherosclerotic heart disease of native coronary artery without angina pectoris; M79.7 Fibromyalgia; Z79.899 Other long term (current) drug therapy; Z88.0 Allergy status to penicillin; Z88.1 Allergy status to other antibiotic agents; Z90.49 Acquired absence of other specified parts of digestive tract; Z90.710 Acquired absence of both cervix and uterus
CPT/HCPCS: 36415; 70450; 80053; 80307; 81002; 84484; 85025; 93005; 96360; 96361; 99285; J3490; J7030